=== PATIENT | female | born 1990 | race Two or more races ===

== ENCOUNTER 2024-12-19 10:02 | Outpatient (AMB) | payer MEDICAID, SELFPAY ==
--- NOTE | 2024-12-19 10:12 | AMB.GYNCLNOT ---
Vital Signs 12/19/24 10:13 Height 1.55 m Height Method Stated Weight 111.697 kg Weight Measurement Method Standing Scale BMI 46.5 BP 139/83 H Blood Pressure Source Automatic Cuff Blood Pressure Location Left Upper Arm Position Sitting Respiration 16 Pulse 81 Pulse Source Monitor Temp 97.6 F Temp Source Oral Pulse Oximetry (%) 97 Oxygen Delivery Method Room Air Allergies/Home Meds Allergies & Medications Allergies pistachio nut Allergy (Verified 12/19/24 10:14) Anaphylaxis Medication Reconciliation ursodiol 300 mg capsule 300 mg PO TID 03/05/21 [History Confirmed 12/19/24] estradiol 0.5 mg tablet 0.5 mg PO QDAY 21 days #21 tabs 12/19/24 [Rx] Intake Visit Data Collection New Patient or Established: Established Patient (seen at [facility] within 3 years) Reason for Visit:: ABBIE CONSULT Seen by Clinical Staff ONLY (RN/MA): No Layout Technician Required: No Do You Feel Safe at Home: Yes Authorities Contacted: N/A PCP or OBGYN visit in last 3 months: No Hx Now: No Are you currently on any form of Control: Yes Last menstrual period: 11/30/24 Pain Present Currently: Yes Pain Location: Abdomen and Back Pain Scale Used: Cole-Alejo/Numerical Pain scale:: 3 Smoking Status Smoking Status: Never smoker 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 1. Little interest or pleasure in doing things: more than half the days 2. Feeling down, depressed, or hopeless: several days Total score: 3 PHQ-9 3. Trouble falling or staying asleep, or sleeping too much: Several days 4. Feeling tired or having little energy: Several days 5. Poor appetite or overeating: Not at all 6. Feeling bad about yourself - or that you are a failure or have let yourself or your family down: Not at all 7. Trouble concentrating on things, such as reading the newspaper or watching television: Several days 8. Moving or speaking so slowly that other people could have noticed? - Or the opposite - being so fidgety or restless that you have been moving around a lot more than usual: not at all 9. Thoughts that you would be better off or of hurting yourself in some way: Not at all Total score: 6.0 If you checked off any problems, how difficult have these problems made it for you to do your work, take care of things at home, or get along with other people?: somewhat difficult Source: Developed by Drs. Rafa Ames, Leonora Smith, Nahid Louis and colleagues, with an educational christel from [employer] [facility]. Depression screen completed yes Social History Living Situation History Lives With: Family Housing: Apartment Tobacco History Smoking Status: Never smoker Second Hand Smoke Exposure: No Alcohol History Alcohol Intake: Never Domestic Abuse History Do You Feel Safe at Home: Yes Past Medical History Past Medical History Have you ever been diagnosed with any of the following: Neurological Problems Cerebrovascular Accident (CVA): No Transient Ischemic Attacks (TIA): No Dementia: No Seizures: No Guillain-[place] Syndrome: No Migraine: No Cardiology Problems Myocardial Infarction: No Cardiac Arrhythmia: No Heart Murmur: No Congestive Heart Failure: No Hypertension: No Respiratory Problems Chronic Obstructive Pulmonary Disease (COPD): No Asthma: No Tuberculosis: No Hx Cough: No Cough: No Wheezing: No Chest Deformities: No Smoking: No Smoking Cessation Counseling: No Smoking Exposure: No Tobacco Use: No Stomache/Intestinal Problems Liver Cancer: No Hepatitis: No Gastrointestinal Bleed: No Junior's Esophagus: No Obesity: Yes Genital/Urinary Problems Chronic Kidney Disease: No Renal Disease: No Reproductive Problems Breast Cancer: No Genital Herpes: No Previous Pregnancies: Yes Musculoskeletal Problems Muscular Dystrophy: No Myasthenia Gravis: No Marfan's Syndrome: No Fractures: Yes Head,Eye,Nose,Throat Problems Cataracts: No Glaucoma: No Endocrine Problems Diabetes Mellitus Type 1: No Diabetes Mellitus Type 2: No Blood Problems Anemia: No Clotting Problems: No Psychologic Problems Depression: Yes Anxiety: Yes Depression: No Other Problems Hospitalization: No Falls: No Blood Transfusions: No Blood Transfusion Reaction: No Anesthesia Reactions: No Organ Transplant: No Chemotherapy: No Radiation Therapy: No Hyperbaric Therapy: No MRSA: No VRSA: No Vancomycin-Resistant Enterococci: No Chicken Pox: Yes ( A CHILD) Clostridium Difficile: No History of Present Illness HPI Narrative 34-year-old 5 para 5 for complaints of heavy menses since November 30, 2024. Reports menses are every month. Usually lasting about 6 days medium flow. Patient was given Depo-Provera 150 IM x 1 October 25. And she wants to change to the Nexplanon. Complains of prolonged menses since November 30. Patient saw family practice at [facility] and was given Lysteda to take 3 times a day for 5 days. Reports no improvement in bleeding patient also complains of increased weight gain with Depo. Previous x 2. History of an abnormal Pap. She had LEEP procedure done twice. And her last Pap was normal. Denies social habits. Denies chronic illness. Using 2 super tampons and changing them every hour. [place] weak sometimes. Patient used Nexplanon in the past and liked it. Review of Systems Review of Systems Systems Reviewed: All systems reviewed, normal except as documented Exam Narrative Physical exam: Color pink. Lungs clear no wheezes. Normal heart rate and rhythm. General Limitations: no limitations General Appearance: alert, in no apparent distress, comfortable, cooperative, healthy appearing, well developed and well groomed Head Head exam: atraumatic, normocephalic and normal inspection Chest Chest inspection: Present normal inspection and symmetric chest wall rise Resp Respiratory exam: Present normal lung sounds bilaterally Card Cardiovascular exam: Present regular rate, normal rhythm and normal heart sounds Abdominal Abdominal exam: Present soft and normal bowel sounds Psych Psychiatric exam: Present normal affect and normal mood Assessment & Plan Diagnosis / Problem List (1) Encounter for surveillance of injectable contraceptive: Status: Acute Plan Discussed Nexplanon insert with patient. Reviewed method and side effects and effects on bleeding. I reviewed side effects of Depo-Provera. And discussed possibility of prolonged bleeding with Depo. Consult with OB. Started patient on estradiol 0.5 daily x 21 days. Patient will then return for Nexplanon insert in 21 days. CBC today. Additional Plan Follow Up: 3 Weeks (nexplanon insert) Office Procedures OB Clinic LOC & Office Proc's Nursing/Assessment Patient Status: Established Patient OB Clinic Nursing Assessment: Medication Reconciliation, Update PMH in EMR and Vital Signs OB Clinic Coordination of Care: Complex Care and Chronic Disease 1-5, Consent,records obtained, informed consent, Education Simp Pt/Fam, Results/Orders obtained and Staff clarify orders Established Patient Charge Established Patient Point Assignment: 90 Established Patient Point Charge: EP Level 3 (80-115)
[2024-12-19 10:13] VITALS: BP 139/83; PULSE 81; RESP 16; TEMP 36.4; O2SAT 97; BMI 46.5
== END 2024-12-19 10:29 | disposition home or self-care (01) ==
LOC: HODSOBC 10:02
PROVIDERS: PCP Advanced Practice Midwife; Referring Provider Advanced Practice Midwife; Supervising Provider Obstetrics & Gynecology; Visit Provider Advanced Practice Midwife
DX: Z30.017 Encounter for initial prescription of implantable subdermal contraceptive (principal)
CPT/HCPCS: 99213; G0463

== ENCOUNTER 2024-12-20 05:26 | Emergency (ER) | payer MEDICAID, SELFPAY ==
[2024-12-20 05:26] VITALS: BMI 47.2
--- NOTE | 2024-12-20 05:41 | PD.EDRME ---
Rapid Medical Screening Exam RME Arrival date/time: 12/20/24 05:26 34 yo f present to Ed for c/o vag bleeding for 20 days I have greeted and performed a focused initial assessment of this patient. A comprehensive ED assessment and evaluation of the patient, analysis of all test results, and completion of the medical decision making process will be conducted by additional ED providers. Chief Complaint: Vaginal Bleeding Time Seen by Provider: 12/20/24 05:29
[2024-12-20 05:45] VITALS: BP 144/98; PULSE 82; RESP 18; TEMP 36.9; O2SAT 97
--- NOTE | 2024-12-20 05:45 | XR_ITS ---
Examination: Pelvic ultrasound, transabdominal, complete Technique: Transabdominal ultrasound of the pelvis performed using grayscale imaging Date and time of exam: December 20, 2024 0705 hrs. Indications: Vaginal bleeding and pelvic pain beginning 20 days ago Findings: Uterus 8.9 cm with anterior uterine fundal mass 17 x 16 x 21 mm Endometrial stripe 0.6 cm Right ovary 3.6 cm arterial flow Left ovary 3.1 cm arterial flow Impression: Intrauterine fundal area of fibroid degeneration 17 x 16 x 21 mm, recommend 6 month follow-up transvaginal pelvic sonography
[2024-12-20 06:48] LABS: Collection Type, Urine Voided
[2024-12-20 07:19] LABS: Basophils # (Auto) 0.1 Thou/mm3 (0.0-0.2); Basophils % (Auto) 1 % (0-2.5); Eosinophils # (Auto) 0.1 Thou/mm3 (0.0-0.5); Eosinophils % (Auto) 1 % (0-10); Hematocrit 39.8 % (36.0-46.0); Hemoglobin 13.2 g/dL (12.0-16.0); Immature Granulocytes % (Auto) 0 % (0-0); Immature Granulocytes Auto 0.01 Thou/mm3 (0.00-0.00); Lymphocytes # (Auto) 2.5 Thou/mm3 (1.0-4.8); Lymphocytes % (Auto) 33 % (10-50); Mean Corpuscular HGB Conc 33.2 g/dl (31.0-37.0); Mean Corpuscular Hemoglobin 28.4 pg (25.0-35.0); Mean Corpuscular Volume 86 fL (80-100); Monocytes # (Auto) 0.5 Thou/mm3 (0.0-0.8); Monocytes % (Auto) 6 % (0-12); Neutrophils # (Auto) 4.5 Thou/mm3 (1.8-7.7); Neutrophils % (Auto) 59 % (37-80); Nucleated Red Blood Cell % 0 /100 WBC (0); Platelet Count 295 Thou/mm3 (140-440); RDW Standard Deviation 49.5 fL (36.4-46.3); Red Blood Count 4.64 Miln/mm3 (4.00-5.20); White Blood Count 7.5 Thou/mm3 (3.6-11.0)
[2024-12-20 07:40] LABS: Alanine Aminotransferase 34 U/L (10-49); Albumin, Serum 4.4 gm/dL (3.5-5.0); Albumin/Globulin Ratio 1.4 (1.2-2.2); Alkaline Phosphatase 56 U/L (46-116); Anion Gap 6 (7-16); Aspartate Amino Transferase 20 U/L (0-34); BUN/Creatinine Ratio 14 Ratio (12-20); Bilirubin,Total 0.6 mg/dL (0.3-1.2); Blood Urea Nitrogen 11 mg/dL (9-23); Calcium 9.3 mg/dL (8.3-10.6); Calcium (Corrected) 9.3 mg/dL (8.5-10.1); Carbon Dioxide 26.8 mMol/L (20.0-31.0); Chloride 110 mMol/L (98-107); Creatinine (Component) 0.8 mg/dL (0.6-1.3); Estimated Creatinine Clearance 114.7 mL/min (>60); Globulin 3.1 gm/dL (2.3-3.5); Glucose 99 mg/dL (74-106); Osmolality,Calculated 284 (275-295); Potassium 3.9 mMol/L (3.4-5.1); Sodium 143 mMol/L (136-145); Total Protein 7.5 gm/dL (5.7-8.2); eGFR > 60 See Note
[2024-12-20 07:41] LABS: Bilirubin,Urine Negative (Negative); Blood,Urine 3+ (Negative); Calcium Oxalate Crystals,Urine 2+; Clarity,Urine Clear (Clear/Hazy); Color,Urine Yellow (Lt Yel-Yel); Glucose, Urine Negative (Negative); Ketones,Urine Negative (Negative); Leukocyte Esterase,Urine Positive (Negative); Nitrite,Urine Negative (Negative); Protein,Urine Trace (Neg - Trace); RBC,Urine 17 /hpf (0-3); Specific Gravity,Urine 1.032 (1.001-1.035); Squamous Epithelial Cell,Urine 5 /hpf (0-5); WBC,Urine 3 /hpf (0-5)
[2024-12-20 07:47] LABS: Prothrombin Time 11.1 Seconds (9.0-12.2)
[2024-12-20 07:57] VITALS: BP 116/81; PULSE 81; RESP 19; TEMP 36.9; O2SAT 98
[2024-12-20 08:12] LABS: HCG,Qualitative Serum Negative
== END 2024-12-20 09:34 | disposition left against medical advice (07) ==
LOC: SERX 07:39
PROVIDERS: Physician Assistant; Emergency Provider Family Medicine; PCP Family Medicine
DX: N93.9 Abnormal uterine and vaginal bleeding, unspecified (principal); R10.2 Pelvic and perineal pain; Z53.29 Procedure and treatment not carried out because of patient's decision for other reasons
CPT/HCPCS: 36415; 76856; 80053; 81001; 84702; 84703; 85025; 85610; 87086; 87491; 87591; 87661; 99281

== ENCOUNTER 2025-01-11 13:45 | Outpatient (AMB) | payer MEDICAID, SELFPAY ==
[2025-01-11 14:10] VITALS: BP 134/82; PULSE 80; RESP 18; TEMP 36.3; O2SAT 99; BMI 46.3
--- NOTE | 2025-01-11 14:10 | AMB.GYNCLNOT ---
Vital Signs 01/11/25 14:10 Height 1.55 m Height Method Stated Weight 111.244 kg Weight Measurement Method Standing Scale BMI 46.3 BP 134/82 H Blood Pressure Source Automatic Cuff Blood Pressure Location Right Upper Arm Position Sitting Respiration 18 Pulse 80 Pulse Source Monitor Temp 97.4 F Temp Source Temporal Artery Scan Pulse Oximetry (%) 99 Oxygen Delivery Method Room Air Allergies/Home Meds Allergies & Medications Allergies pistachio nut Allergy (Verified 01/11/25 14:11) Anaphylaxis Medication Reconciliation norethindrone 1 mg-ethinyl estradiol 35 mcg tablet (Nylia) 1 tab PO QDAY 30 days #30 tabs 01/11/25 [Rx] Intake Visit Data Collection New Patient or Established: Established Patient (seen at [facility] within 3 years) Reason for Visit:: OCP start and f/u irregular bleeding Do You Feel Safe at Home: Yes Authorities Contacted: N/A PCP or OBGYN visit in last 3 months: Yes Pain Present Currently: No Smoking Status Smoking Status: Never smoker 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 Menstrual regularity: irregular Flow: heavy Monthly: No Age at menarche: 8 Currently sexually active: No PHP MYSQL WEB DEVELOPER: Past Medical History Past Medical History: No Hx Neurological Disorders, No Hx Breast Cancer, No Hx Cardiac Disorders, No Hx Hypertension, No Hx Blood Disorders, No Hx Anemia, No Hx Gastrointestinal Disorders, No Hx Renal Disease, No Hx Diabetes Mellitus Type 1 and No Hx Diabetes Mellitus Type 2 Questionnaires Covid-19 Vaccine Questionnaire Has patient been vacinated for Covid-19 Have you been vacinated for Covid-19: Yes PHQ-9 PHQ-2 Over the last 2 weeks, how often have you been bothered by any of the following problems? 1. Little interest or pleasure in doing things: not at all 2. Feeling down, depressed, or hopeless: not at all Total score: 0 PHQ-9 8. Moving or speaking so slowly that other people could have noticed? - Or the opposite - being so fidgety or restless that you have been moving around a lot more than usual: not at all Source: Developed by Drs. Rafa Ames, Leonora Smith, Nahid Louis and colleagues, with an educational christel from [employer]. Depression screen completed yes Social History Living Situation History Lives With: Family Housing: Apartment Tobacco History Smoking Status: Never smoker Second Hand Smoke Exposure: No Alcohol History Alcohol Intake: Never Domestic Abuse History Do You Feel Safe at Home: Yes History of Present Illness HPI Narrative 34 yo for nexplanon insert. patient was seen 2 week ago for nexplanon consult. patient was given depo 10/25 for contraception and started bleeding 12/23. patient was seen in [place] for increased vaginal bleeding. pelvic sono was done. patient then was seen by Dr Romero,treated with Norethindrone/estradiol taking 2 tab per day/3 days. Bleeding stopped, but then restarted bleeding. here today for consult and continued OCP management. no PMH,NO social habit,no surgery Review of Systems Review of Systems Systems Reviewed: All systems reviewed, normal except as documented Exam General Limitations: no limitations General Appearance: alert, in no apparent distress, comfortable, cooperative, healthy appearing, well developed and well groomed Head Head exam: atraumatic, normocephalic and normal inspection Eye Eye exam: Present normal appearance, PERRL and EOMI ENT ENT exam: Present normal exam, normal oropharynx and mucous membranes moist Neck Neck exam: Present normal inspection, full ROM and trachea midline Chest Chest inspection: Present normal inspection and symmetric chest wall rise Resp Respiratory exam: Present normal lung sounds bilaterally Card Cardiovascular exam: Present regular rate, normal rhythm and normal heart sounds Abdominal Abdominal exam: Present soft and normal bowel sounds Extremities Extremities exam: Present normal inspection and full ROM Back Back exam: Present normal inspection and full ROM Neuro Neurological exam: Present alert, oriented X3 and CN II-XII intact Psych Psychiatric exam: Present normal affect and normal mood Skin Skin exam: Present warm, dry, intact and normal color Results Objective Laboratory: CBC: platelets normal HGB:14/4, preg test was normal. chemistry normal Imagin/22 pelvic: uterus 8.9, small area anterior fundus [id number] . probable area of fundal gegeneration, ovaries are normal Office Procedures OB Clinic LOC & Office Proc's Nursing/Assessment Patient Status: Established Patient OB Clinic Nursing Assessment: BP Monitoring, Medication Reconciliation, Update PMH in EMR and Vital Signs OB Clinic Coordination of Care: Complex Care and Chronic Disease 1-5, Education Complex Pt/Fam, Consent,records obtained, informed consent and Staff clarify orders Established Patient Charge Established Patient Point Assignment: 105 Established Patient Point Charge: EP Level 3 (80-115) Assessment & Plan Diagnosis / Problem List (1) Encounter for initial prescription of contraceptive pills: Status: Acute (2) Irregular menses: Status: Acute Plan continue Nylia as ordered. refila Nylia x6. review method and compliance. multivitamin with folic acid. discuss diet, regular exercise. walk 40 minute daily. discuss ACHES. f/u 6 month for refill of ocp or change to nexplanon and f/u pelvic sono Additional Plan Follow Up: 6 Months (f/o ocp and irreg bleeding)
== END 2025-01-11 14:25 | disposition home or self-care (01) ==
LOC: HODSOBC 13:45
PROVIDERS: PCP Advanced Practice Midwife; Referring Provider Advanced Practice Midwife; Supervising Provider Obstetrics & Gynecology; Visit Provider Advanced Practice Midwife
DX: Z30.011 Encounter for initial prescription of contraceptive pills (principal); N92.6 Irregular menstruation, unspecified
CPT/HCPCS: 99213; G0463